=== PATIENT | male | born 1965 | race Caucasian/White ===

== ENCOUNTER 2017-02-13 05:56 | Emergency (ER) | payer BC ==
[2017-02-13] MEDS ORDERED: GI Cocktail Oral Solution 30 ML PO ONE (06:01)
--- NOTE | 2017-02-13 06:08 | EDM.PDOC ---
<Karel Dean - Last Filed: 02/13/17 07:13> ED HPI GENERAL MEDICAL PROBLEM - General Stated Complaint: SEVERE ABD PAIN Time Seen by Provider: 02/13/17 06:05 Source of Information: Reports: Patient History Limitations: Reports: No Limitations - History of Present Illness INITIAL COMMENTS - FREE TEXT/NARRATIVE: c/o epiG pain since 5am without V/D, gives h/o H-H past 25 years also had cardiac arrest and had pacer-defib, also brother dies from pancreatitis. ate dinner of meat loaf & beans. Right Abdomen Pain Score (Numeric/FACES): 8 - Related Data Allergies Allergy/AdvReac Type Severity Reaction Status Date / Time Sulfa (Sulfonamide Allergy Rash Verified 02/13/17 06:35 Antibiotics) Home Meds: Home Meds ALPRAZolam [Xanax] 0.5 mg PO TID PRN 09/08/15 [History] Aspirin [Adult Low Dose Aspirin EC] 81 mg PO DAILY 09/08/15 [History] Lisinopril 10 mg PO DAILY 09/08/15 [History] atorvaSTATin [Lipitor] 5 mg PO ASDIRECTED 09/08/15 [History] Metoprolol Succinate [Toprol XL] 50 mg PO DAILY 10/15/15 [History] predniSONE [Prednisone] 2 mg PO ASDIRECTED 10/15/15 [History] Atovaquone 750 mg PO DAILY 01/03/16 [History] Mycophenolate Mofetil [Cellcept] 1,000 mg PO BID 01/03/16 [History] Calcium Carbonate [Calcium] 600 mg PO 07/05/16 [History] Cholecalciferol (Vitamin D3) [Vitamin D3] 400 unit PO BID 07/05/16 [History] DULoxetine [Cymbalta] 60 mg PO DAILY 07/05/16 [History] Pantoprazole [Protonix] 40 mg PO DAILY 07/05/16 [History] Past Medical History Cardiovascular History: Reports: Arrhythmia, Automatic Implantable Cardioverter Defibrillators, CAD, Cardiomyopathy, High Cholesterol, Hypertension, Pacemaker, Prior Cardiac Arrest Other Cardiovascular History: cardiac arrest 1 month ago due to dilated cardiomyopathy, had an AICD implanted Respiratory History: Reports: None Gastrointestinal History: Reports: GERD Genitourinary History: Reports: None Psychiatric History: Reports: Anxiety Hematologic History: Reports: None Immunologic History: Reports: None Oncologic (Cancer) History: Reports: None - Past Surgical History Cardiovascular Surgical History: Reports: AICD Male Surgical History: Reports: None Oncologic Surgical History: Reports: None Social & Family History - Tobacco Use Smoking Status *Q: Never Smoker Second Hand Smoke Exposure: No - Recreational Drug Use Recreational Drug Use: No ED ROS GENERAL - Review of Systems Review Of Systems: ROS reveals no pertinent complaints other than HPI. ED EXAM, GENERAL - Physical Exam Exam: See Below Exam Limited By: No Limitations General Appearance: Alert, WD/WN, Anxious, Mild Distress Ears: Hearing Grossly Normal Throat/Mouth: Normal Voice, No Airway Compromise Head: Atraumatic Neck: Non-Tender, Full Range of Motion Respiratory/Chest: No Respiratory Distress Cardiovascular: Regular Rate, Rhythm GI/Abdominal: Tender, Other (epiG). No: Guarding, Rigid, Rebound Neurological: Alert, Oriented, Normal Cognition, Normal Gait, No Motor/Sensory Deficits Psychiatric: Anxious Skin Exam: Warm, Dry, Normal Color Lymphatic: No Adenopathy Course - Vital Signs Last Recorded V/S: Last Vital Signs Temp 36.4 C 02/13/17 05:56 Pulse 80 02/13/17 08:33 Resp 16 02/13/17 08:33 BP 125/97 H 02/13/17 08:33 Pulse Ox 98 02/13/17 08:33 - Orders/Labs/Meds Orders: Active Orders 24 hr Category Date Time Status EKG 12 Lead [EKG Documentation Completion] [RC] STAT Care 02/13/17 06:02 Active Abdomen Ltd [US] Urgent Exams 02/13/17 08:05 Taken Labs: Laboratory Tests 02/13/17 02/13/17 Range/Units 06:12 06:12 WBC 9.1 (5.0-10.0) 10^3/uL RBC 5.14 (4.6-6.2) 10^6/uL Hgb 16.4 (14.0-18.0) g/dL Hct 48.6 (40.0-54.0) % MCV 94.6 (80-100) fL MCH 31.9 (27.0-34.0) pg MCHC 33.7 (33.0-35.0) g/dL Plt Count 217 (150-450) 10^3/uL Neut % (Auto) 56.6 (42.2-75.2) % Lymph % (Auto) 26.6 (20.5-50.1) % [place] % (Auto) 14.1 H (2-8) % Eos % (Auto) 1.9 (1.0-3.0) % Baso % (Auto) 0.8 (0.0-1.0) % Sodium 136 (135-145) mmol/L Potassium 4.2 (3.6-5.0) mmol/L Chloride 96 L (101-111) mmol/L Carbon Dioxide 25.0 (21.0-31.0) mmol/L Anion Gap 19.2 BUN 13 (7-18) mg/dL Creatinine 0.9 (0.6-1.3) mg/dL Est Cr Clr Drug Dosing 101.64 mL/min Estimated GFR (MDRD) > 60 BUN/Creatinine Ratio 14.44 Glucose 279 H (74-105) mg/dL Calcium 9.8 (8.4-10.2) mg/dl Total Bilirubin 0.8 (0.2-1.0) mg/dL AST 38 (10-42) IU/L ALT 68 H (10-60) IU/L Alkaline Phosphatase 62 (42-121) IU/L Troponin I < 0.02 (0.00-0.02) ng/ml Total Protein 7.4 (6.7-8.2) g/dl Albumin 4.7 (3.2-5.5) g/dl Globulin 2.7 Albumin/Globulin Ratio 1.74 Amylase 48 (28-100) U/L Lipase 36 (22-51) U/L Meds: Medications Discontinued Medications Generic Name Dose Route Start Last Admin Trade Name Freq PRN Reason Stop Dose Admin Al Hydroxide/Mg Hydroxide 30 ml 02/13/17 06:01 02/13/17 06:21 Gi Cocktail PO 02/13/17 06:02 30 ml ONETIME ONE Administration Iopamidol 100 ml 02/13/17 06:55 Isovue-300 (61%) IVPUSH 02/13/17 06:56 ONETIME ONE Morphine Sulfate 2 mg 02/13/17 06:35 02/13/17 06:44 Morphine IVPUSH 02/13/17 06:36 2 mg ONETIME ONE Administration Ondansetron HCl 4 mg 02/13/17 06:35 02/13/17 06:44 Zofran IV 02/13/17 06:36 4 mg ONETIME ONE Administration - Re-Assessments/Exams Free Text/Narrative Re-Assessment/Exam: 02/13/17 06:36 s/p GI cocktail = getting better but not 100%. pt very anxious. 02/13/17 06:56 s/p IV morph = much better but really concern re; pancreas due to brother from pancreatitis. Departure - Departure Disposition: DC/Tfer to [facility] 02 Clinical Impression: Gall bladder disease Forms: Interfacility Transfer EMTALA Care Plan Goals: Discussed the examination, history, lab, EKG, CT and ultrasound results initially with Dr. Decker (Local Surgeon). Dr. Decker advised to have the patient transferred to [facility] in [place] for an ERCP due to dilation of the common bile duct. Information was discussed with Dr. Lomeli (Hospitalist with [facility] in [place]). Dr. Lomeli accepted the patient for continued evaluation and management. The patient will be transported by [facility]. - My Orders Last 24 Hours: My Active Orders 02/13/17 08:05 Abdomen Ltd [US] Urgent - Assessment/Plan Last 24 Hours: My Active Orders 02/13/17 08:05 Abdomen Ltd [US] Urgent <Timbo Freed - Last Filed: 02/13/17 10:09> Course - Re-Assessments/Exams Free Text/Narrative Re-Assessment/Exam: 02/13/17 10:[address] Decker (Surgeon). Dr. Decker advised to have the patient transferred to [facility] due to a dilated common bile duct (3.8 mm) and cardiac history. Departure - Departure Time of Disposition: 10:04 Reason for Transfer *Q: Other Condition: Fair
[2017-02-13] MEDS ORDERED: Ondansetron 4 MG/2 ML SDV IV ONE (06:35)
[2017-02-13] MEDS ORDERED: Morphine 2 MG/ML Syringe IVPUSH ONE (06:35)
[2017-02-13 06:40] LABS: CHLORIDE,CL 96 mmol/L (101-111); SODIUM,NA 136 mmol/L (135-145)
[2017-02-13] MEDS ORDERED: Iopamidol 612 MG/ML 100 ML Bottle IVPUSH ONE (06:55)
[2017-02-13 08:34] VITALS: BP 125/97
--- NOTE | 2017-04-05 10:37 | EKG ---
02/13/2017- YARIEL HERNANDEZ - EKG done on a 52-year-old male showing Sinus rhythm, discernible P waves noted on some leads, heart rate of 64 beats per minute, normal axis. [facility] /[id number] MTDD
== END 2017-02-13 10:30 ==
LOC: DL.ED 05:56
DX: K82.9 Disease of gallbladder, unspecified (principal); I25.10 Atherosclerotic heart disease of native coronary artery without angina pectoris; E78.00 Pure hypercholesterolemia, unspecified; I10 Essential (primary) hypertension; K21.9 Gastro-esophageal reflux disease without esophagitis; F41.9 Anxiety disorder, unspecified; Z88.2 Allergy status to sulfonamides; Z79.899 Other long term (current) drug therapy
CPT/HCPCS: 36415; 74177; 76705; 80053; 82150; 83690; 84484; 85025; 93005; 96374; 96375; 99285; A9270; J2270; J2405; Q9967

== ENCOUNTER 2017-08-06 11:05 | Emergency (ER) | payer BC ==
[2017-08-06 11:15] VITALS: BP 147/99
--- NOTE | 2017-08-06 11:28 | EDM.PDOC ---
ED HPI GENERAL MEDICAL PROBLEM - General Chief Complaint: Fever Stated Complaint: ABDOMINAL PAIN Time Seen by Provider: 08/06/17 11:27 Source of Information: Reports: Patient, Old Records, RN, RN Notes Reviewed History Limitations: Reports: No Limitations - History of Present Illness INITIAL COMMENTS - FREE TEXT/NARRATIVE: Pt c/o generalized abdominal pain x4 to 5 days, getting worse. Initially associated with fever, nausea, vomiting, and diarrhea. Pt reports the N/V and fevers have subsided, but the pain has gotten worse. Pt had his gallbladder removed last year. Duration: Week(s): (1), Constant, Getting Worse Location: Reports: Abdomen Quality: Reports: Ache Severity: Severe Improves with: Reports: None Worsens with: Reports: None Associated Symptoms: Reports: No Other Symptoms Treatments RAG SHREDDER: Reports: Acetaminophen Abdomen Pain Score (Numeric/FACES): 8 - Related Data Allergies Allergy/AdvReac Type Severity Reaction Status Date / Time midazolam [From Versed] Allergy Other Verified 08/06/17 11:16 Sulfa (Sulfonamide Allergy Rash Verified 02/13/17 06:35 Antibiotics) Home Meds: Home Meds ALPRAZolam [Xanax] 0.5 mg PO TID PRN 09/08/15 [History] Aspirin [Adult Low Dose Aspirin EC] 81 mg PO DAILY 09/08/15 [History] Lisinopril 10 mg PO DAILY 09/08/15 [History] atorvaSTATin [Lipitor] 5 mg PO ASDIRECTED 09/08/15 [History] predniSONE [Prednisone] 2 mg PO ASDIRECTED 10/15/15 [History] Atovaquone 750 mg PO DAILY 01/03/16 [History] Mycophenolate Mofetil [Cellcept] 1,500 mg PO BID 01/03/16 [History] Calcium Carbonate [Calcium] 600 mg PO 07/05/16 [History] Cholecalciferol (Vitamin D3) [Vitamin D3] 400 unit PO BID 07/05/16 [History] DULoxetine [Cymbalta] 60 mg PO DAILY 07/05/16 [History] Sotalol [Betapace] 08/06/17 [History] Past Medical History Cardiovascular History: Reports: Arrhythmia, Automatic Implantable Cardioverter Defibrillators, CAD, Cardiomyopathy, High Cholesterol, Hypertension, Pacemaker, Prior Cardiac Arrest Other Cardiovascular History: cardiac arrest 1 month ago due to dilated cardiomyopathy, had an AICD implanted Respiratory History: Reports: None Gastrointestinal History: Reports: Cholelithiasis, GERD Genitourinary History: Reports: None Psychiatric History: Reports: Anxiety Hematologic History: Reports: None Immunologic History: Reports: None Oncologic (Cancer) History: Reports: None - Past Surgical History Cardiovascular Surgical History: Reports: AICD GI Surgical History: Reports: Cholecystectomy Male Surgical History: Reports: None Oncologic Surgical History: Reports: None Social & Family History - Family History Cardiac: Reports: CAD (father) GI: Reports: Pancreatitis (brother) Oncologic: Reports: Pancreatic (brother) - Tobacco Use Smoking Status *Q: Never Smoker Second Hand Smoke Exposure: No - Caffeine Use Caffeine Use: Reports: Coffee, Soda, Tea - Recreational Drug Use Recreational Drug Use: No - Living Situation & Occupation Living situation: Reports: , with Family Occupation: Employed ED ROS GENERAL - Review of Systems Review Of Systems: ROS reveals no pertinent complaints other than HPI. ED EXAM, GENERAL - Physical Exam Exam: See Below Exam Limited By: No Limitations General Appearance: Alert, WD/WN, No Apparent Distress Eye Exam: Bilateral Eye: EOMI, Normal Inspection, PERRL Ears: Hearing Grossly Normal Nose: Normal Inspection Throat/Mouth: Normal Inspection, Normal Lips, Normal Teeth, Normal Gums, Normal Oropharynx, Normal Voice, No Airway Compromise Head: Atraumatic, Normocephalic Neck: Normal Inspection, Supple, Non-Tender, Full Range of Motion Respiratory/Chest: No Respiratory Distress, Lungs Clear, Normal Breath Sounds, No Accessory Muscle Use, Chest Non-Tender Cardiovascular: Normal Peripheral Pulses, Regular Rate, Rhythm, No Edema, No Gallop, No JVD, No Murmur, No Rub GI/Abdominal: Normal Bowel Sounds, Soft, No Distention, Tender (epigastric, RUQ tenderness). No: Guarding, Rigid, Rebound (Male) Exam: Deferred Rectal (Males) Exam: Deferred Back Exam: Normal Inspection. No: CVA Tenderness (L), CVA Tenderness (R) Extremities: Normal Inspection Neurological: Alert, Oriented, CN II-XII Intact, Normal Cognition, Normal Gait, No Motor/Sensory Deficits Psychiatric: Normal Affect, Normal Mood Skin Exam: Warm, Dry, Intact, Jaundice (slight) EKG INTERPRETATION EKG Date: 08/06/17 Time: 11:43 Rhythm: Other (Sinus Tach) Rate (Beats/Min): 103 [place]: Normal P-Wave: Present QRS: Other (nonspecific IVCD, LVH, paired PVCs) ST-T: Normal QT: Normal Comparison: NA - No Prior EKG Course - Vital Signs Last Recorded V/S: Last Vital Signs Temp 35.1 C L 08/06/17 11:08 Pulse 110 H 08/06/17 11:08 Resp 16 08/06/17 11:08 BP 147/99 H 08/06/17 11:08 Pulse Ox 99 08/06/17 11:08 - Orders/Labs/Meds Orders: Active Orders 24 hr Category Date Time Status EKG 12 Lead [EKG Documentation Completion] [] STAT Care 08/06/17 11:36 Active Peripheral IV Care [] . DIRECTED Care 08/06/17 11:34 Active CULTURE BLOOD [BC] Stat Lab 08/06/17 11:41 Received CULTURE BLOOD [BC] Stat Lab 08/06/17 11:59 Received Sodium Chloride 0.9% [Saline Flush] Med 08/06/17 11:33 Active 10 ml FLUSH ASDIRECTED PRN Blood Culture x2 Reflex Set [OM.PC] Stat Oth 08/06/17 11:34 Ordered Peripheral IV Insertion Adult [OM.PC] Stat Oth 08/06/17 11:34 Ordered Medication Orders Sodium Chloride (Saline Flush) 10 ml FLUSH ASDIRECTED PRN PRN Reason: Keep Vein Open Last Admin: 08/06/17 11:48 Dose: 10 ml Labs: Laboratory Tests 08/06/17 08/06/17 08/06/17 Range/Units 11:41 11:41 11:41 WBC 15.5 H (5.0-10.0) 10^3/uL RBC 5.16 (4.6-6.2) 10^6/uL Hgb 15.7 (14.0-18.0) g/dL Hct 44.9 (40.0-54.0) % MCV 87.0 D (80-100) fL MCH 30.4 (27.0-34.0) pg MCHC 35.0 (33.0-35.0) g/dL Plt Count 150 (150-450) 10^3/uL Neut % (Auto) 82.1 H (42.2-75.2) % Lymph % (Auto) 4.2 L (20.5-50.1) % [place] % (Auto) 12.5 H (2-8) % Eos % (Auto) 1.0 (1.0-3.0) % Baso % (Auto) 0.2 (0.0-1.0) % Sodium 128 L (135-145) mmol/L Potassium 3.7 (3.6-5.0) mmol/L Chloride 91 L (101-111) mmol/L Carbon Dioxide 22.0 (21.0-31.0) mmol/L Anion Gap 18.7 BUN 10 (7-18) mg/dL Creatinine 0.8 (0.6-1.3) mg/dL Est Cr Clr Drug Dosing 110.47 mL/min Estimated GFR (MDRD) > 60 BUN/Creatinine Ratio 12.50 Glucose 145 H (74-105) mg/dL Lactic Acid 1.4 (0.5-2.2) mmol/L Calcium 8.8 (8.4-10.2) mg/dl Magnesium 1.8 (1.8-2.5) mg/dL Total Bilirubin 3.9 H (0.2-1.0) mg/dL AST 104 H (10-42) IU/L ALT 192 H (10-60) IU/L Alkaline Phosphatase 103 (42-121) IU/L Troponin I < 0.02 (0.00-0.02) ng/ml Total Protein 6.8 (6.7-8.2) g/dl Albumin 3.8 (3.2-5.5) g/dl Globulin 3.0 Albumin/Globulin Ratio 1.27 Amylase 59 (28-100) U/L Lipase 73 H (22-51) U/L Urine Color (YELLOW) Urine Appearance (CLEAR) Urine pH (5.0-9.0) Ur Specific [place] (1.005-1.030) Urine Protein (NEGATIVE) Urine Glucose (UA) (NEGATIVE) Urine Ketones (NEGATIVE) Urine Occult Blood (NEGATIVE) Urine Nitrite (NEGATIVE) Urine Bilirubin (NEGATIVE) Urine Urobilinogen (0.2-1.0) mg/dL Ur Leukocyte Esterase (NEGATIVE) Urine RBC /HPF Urine WBC (0-5/HPF) /HPF Ur Epithelial Cells /HPF Amorphous Sediment (0/HPF) /HPF Urine Bacteria (0-FEW/HPF) /HPF Urine Mucus /LPF 08/06/17 Range/Units 13:10 WBC (5.0-10.0) 10^3/uL RBC (4.6-6.2) 10^6/uL Hgb (14.0-18.0) g/dL Hct (40.0-54.0) % MCV (80-100) fL MCH (27.0-34.0) pg MCHC (33.0-35.0) g/dL Plt Count (150-450) 10^3/uL Neut % (Auto) (42.2-75.2) % Lymph % (Auto) (20.5-50.1) % [place] % (Auto) (2-8) % Eos % (Auto) (1.0-3.0) % Baso % (Auto) (0.0-1.0) % Sodium (135-145) mmol/L Potassium (3.6-5.0) mmol/L Chloride (101-111) mmol/L Carbon Dioxide (21.0-31.0) mmol/L Anion Gap BUN (7-18) mg/dL Creatinine (0.6-1.3) mg/dL Est Cr Clr Drug Dosing mL/min Estimated GFR (MDRD) BUN/Creatinine Ratio Glucose (74-105) mg/dL Lactic Acid (0.5-2.2) mmol/L Calcium (8.4-10.2) mg/dl Magnesium (1.8-2.5) mg/dL Total Bilirubin (0.2-1.0) mg/dL AST (10-42) IU/L ALT (10-60) IU/L Alkaline Phosphatase (42-121) IU/L Troponin I (0.00-0.02) ng/ml Total Protein (6.7-8.2) g/dl Albumin (3.2-5.5) g/dl Globulin Albumin/Globulin Ratio Amylase (28-100) U/L Lipase (22-51) U/L Urine Color Yellow (YELLOW) Urine Appearance Slightly cloudy (CLEAR) Urine pH 5.5 (5.0-9.0) Ur Specific [place] 1.010 (1.005-1.030) Urine Protein 30 H (NEGATIVE) Urine Glucose (UA) Negative (NEGATIVE) Urine Ketones 40 H (NEGATIVE) Urine Occult Blood Negative (NEGATIVE) Urine Nitrite Negative (NEGATIVE) Urine Bilirubin Small H (NEGATIVE) Urine Urobilinogen 0.2 (0.2-1.0) mg/dL Ur Leukocyte Esterase Negative (NEGATIVE) Urine RBC 0-5 /HPF Urine WBC 0-5 (0-5/HPF) /HPF Ur Epithelial Cells Rare /HPF Amorphous Sediment Few (0/HPF) /HPF Urine Bacteria Few (0-FEW/HPF) /HPF Urine Mucus Rare /LPF Meds: Medications Generic Name Dose Route Start Last Admin Trade Name Freq PRN Reason Stop Dose Admin Sodium Chloride 10 ml 08/06/17 11:33 08/06/17 11:48 Saline Flush FLUSH 10 ml ASDIRECTED PRN Administration Keep Vein Open Discontinued Medications Generic Name Dose Route Start Last Admin Trade Name Freq PRN Reason Stop Dose Admin Sodium Chloride 1,000 mls @ 999 mls/hr 08/06/17 11:36 08/06/17 11:47 Normal Saline IV 08/06/17 12:36 999 mls/hr .BOLUS ONE Administration Iopamidol 100 ml 08/06/17 12:45 08/06/17 13:20 Isovue-300 (61%) IVPUSH 08/06/17 12:46 100 ml ONETIME ONE Administration Ondansetron HCl 4 mg 08/06/17 11:36 08/06/17 11:48 Zofran IV 08/06/17 11:37 4 mg ONETIME ONE Administration - Radiology Interpretation Free Text/Narrative:: CT ABD/Pelvis: abnormal, 12cm-15cm cystic lesions x2; see Rad. report. CT Results Date: 08/06/17 Departure - Departure Time of Disposition: 14:20 Disposition: DC/Tfer to Acute Hospital 02 Condition: Serious, Undetermined Clinical Impression: Pancreatic cyst, Abdominal pain, Elevated LFTs - Discharge Information Forms: ED Department Discharge, Interfacility Transfer EMTALA - My Orders Last 24 Hours: My Active Orders 08/06/17 11:33 Sodium Chloride 0.9% [Saline Flush] 10 ml FLUSH ASDIRECTED PRN 08/06/17 11:34 Peripheral IV Care [RC] . DIRECTED Blood Culture x2 Reflex Set [OM.PC] Stat Peripheral IV Insertion Adult [OM.PC] Stat 08/06/17 11:36 EKG 12 Lead [EKG Documentation Completion] [RC] STAT 08/06/17 11:41 CULTURE BLOOD [BC] Stat 08/06/17 11:59 CULTURE BLOOD [BC] Stat - Assessment/Plan Last 24 Hours: My Active Orders 08/06/17 11:33 Sodium Chloride 0.9% [Saline Flush] 10 ml FLUSH ASDIRECTED PRN 08/06/17 11:34 Peripheral IV Care [RC] . DIRECTED Blood Culture x2 Reflex Set [OM.PC] Stat Peripheral IV Insertion Adult [OM.PC] Stat 08/06/17 11:36 EKG 12 Lead [EKG Documentation Completion] [RC] STAT 08/06/17 11:41 CULTURE BLOOD [BC] Stat 08/06/17 11:59 CULTURE BLOOD [BC] Stat
[2017-08-06] MEDS ORDERED: Sodium Chloride 0.9% 10 ML Syringe FLUSH PRN (11:33)
[2017-08-06] MEDS ORDERED: Ondansetron 4 MG/2 ML SDV IV ONE (11:36)
[2017-08-06] MEDS ORDERED: Sodium Chloride 0.9% 1,000 ML IV ONE (11:36)
[2017-08-06 12:10] LABS: CHLORIDE,CL 91 mmol/L (101-111); SODIUM,NA 128 mmol/L (135-145)
[2017-08-06] MEDS ORDERED: Iopamidol 612 MG/ML 100 ML Bottle IVPUSH ONE (12:45)
--- NOTE | 2017-08-06 14:26 | CT ---
CLINICAL HISTORY: 52-year-old 210 pound hypertensive and diabetic male with a history cholecystectomy , abnormally elevated LFTs (total bilirubin 3.9), and increased WBC (15,500) complaining of abdomina l pain reported to have fatty liver January 2017. SCAN TECHNIQUE: Volume acquisition of data from the abdomen and pelvis obtained without oral contrast but during/after the intravenous administration 100 cc nonionic Isovue contrast (3 cc/sec via inject or) while the patient was lying supine on the Siemens multislice CT scanner [place], [place]. All data archived in the PACS system for storage, reformatting and study. INTERPRETATION: Abnormal. 1. *Round adjacent 12-15 mm hypoechoic cystic (x2) lesions, anteriorly, head of the pancreas with armando e surrounding "dirty" peritoneal fat suggesting inflammation new since previous exam 13 February 2017. 2.. Small diverticulum second portion of the duodenum. Body and tail of the pancreas normal without d iscrete mass or major pancreatic ductal dilatation. 3. Cholecystectomy. Fatty liver. Normal stomach, spleen and adrenal glands. 4. Normal reniform size, axis and configuration. No sign of renal cortical mass lesion, nephrolithias is or obstructive uropathy. 5. Cardiac pacemaker. Calcifications normal caliber aortoiliac vessels. Chronic disc disease and ante rolisthesis L5 vertebral body. 6. No new pelvic or abdominal mass lesion, signs of retroperitoneal lymphadenopathy, mechanical bowel obstruction, ascites or free intraperitoneal air. Normal appendix RLQ. CONCLUSION: Acute pancreatitis (new evidence cholecystectomy since [address] exam). Clinical?
--- NOTE | 2017-08-08 18:59 | EKG ---
08/06/2017 - YARIEL HERNANDEZ I reviewed the EKG and agree with the machine's reading. [facility] /[id number]
== END 2017-08-06 15:05 ==
LOC: DL.ED 11:05
DX: K86.2 Cyst of pancreas (principal); R94.5 Abnormal results of liver function studies; K21.9 Gastro-esophageal reflux disease without esophagitis; Z88.2 Allergy status to sulfonamides; Z88.8 Allergy status to other drugs, medicaments and biological substances; Z79.82 Long term (current) use of aspirin; Z79.899 Other long term (current) drug therapy
CPT/HCPCS: 36415; 74177; 80053; 81001; 82150; 83605; 83690; 83735; 84484; 85025; 87040; 93005; 96361; 96374; 99285; J2405; J7030; J7050; Q9967

== ENCOUNTER 2019-05-21 08:56 | Emergency (ER) | payer BC ==
[2019-05-21 09:06] VITALS: BP 123/71; PULSE 99
[2019-05-21 10:00] LABS: ANION GAP 12.7; CHLORIDE,CL 90 mmol/L (101-111); SODIUM,NA 124 mmol/L (135-145)
--- NOTE | 2019-05-21 10:00 | EDM.PDOC ---
ED HPI GENERAL MEDICAL PROBLEM - General Chief Complaint: General Stated Complaint: LEAKING FLUID FROM PROCEDURE LAST WEEK Time Seen by Provider: 05/21/19 09:35 Source of Information: Reports: Patient History Limitations: Reports: No Limitations - History of Present Illness INITIAL COMMENTS - FREE TEXT/NARRATIVE: This 54 yo male patient reports to the ED with drainage from his right abdomen. The patient reports he had 3.5 liters of fluid drained from his abdomen last week. The patient reports he started to have drainage last night and the wound has continued to drain throughout the morning. The patient has a history of sarcoidosis and has been being treated through the [facility]. The patient reports he is attempting to get into Dr. Alejandra (GI/Liver Specialist with [facility]) for continued evaluation and further treatment. The patient denies any abdominal tenderness or shortness of breath at this time. Onset: Today Duration: Constant Location: Reports: Abdomen (right side abdominal drainage) Quality: Reports: Other Severity: Mild Improves with: Reports: None Worsens with: Reports: None Context: Reports: Other Associated Symptoms: Reports: No Other Symptoms - Related Data Allergies Allergy/AdvReac Type Severity Reaction Status Date / Time midazolam [From Versed] Allergy Other Verified 05/21/19 09:06 Sulfa (Sulfonamide Allergy Rash Verified 05/21/19 09:06 Antibiotics) Home Meds: Home Meds ALPRAZolam [Xanax] 0.5 mg PO TID PRN 09/08/15 [History] Lisinopril 10 mg PO DAILY 09/08/15 [History] atorvaSTATin [Lipitor] 5 mg PO ASDIRECTED 09/08/15 [History] predniSONE [Prednisone] 20 mg PO ASDIRECTED 10/15/15 [History] Mycophenolate Mofetil [Cellcept] 1,500 mg PO BID 01/03/16 [History] DULoxetine [Cymbalta] 60 mg PO DAILY 07/05/16 [History] Past Medical History HEENT History: Reports: Impaired Vision Cardiovascular History: Reports: Arrhythmia, Automatic Implantable Cardioverter Defibrillators, CAD, Cardiomyopathy, High Cholesterol, Hypertension, Pacemaker, Prior Cardiac Arrest Other Cardiovascular History: cardiac arrest 1 month ago due to dilated cardiomyopathy, had an AICD implanted Respiratory History: Reports: None Other Respiratory History: Sarcoidosis Gastrointestinal History: Reports: Cholelithiasis, GERD Genitourinary History: Reports: None Neurological History: Reports: None Psychiatric History: Reports: Anxiety Endocrine/Metabolic History: Reports: Diabetes, Type II Other Endocrine/Metabolic History: Due to steriod use Hematologic History: Reports: Anemia Immunologic History: Reports: None Oncologic (Cancer) History: Reports: None Dermatologic History: Reports: None - Infectious Disease History Infectious Disease History: Reports: Chicken Pox - Past Surgical History Cardiovascular Surgical History: Reports: AICD GI Surgical History: Reports: Cholecystectomy, EGD Male Surgical History: Reports: None Musculoskeletal Surgical History: Reports: Other (See Below) Other Musculoskeletal Surgeries/Procedures:: Wrist surgery Oncologic Surgical History: Reports: None Social & Family History - Family History Family Medical History: Noncontributory Cardiac: Reports: CAD GI: Reports: Pancreatitis Oncologic: Reports: Pancreatic - Tobacco Use Smoking Status *Q: Never Smoker Second Hand Smoke Exposure: No - Caffeine Use Caffeine Use: Reports: Coffee, Soda - Recreational Drug Use Recreational Drug Use: No - Living Situation & Occupation Living situation: Reports: , with Family Occupation: Employed ED ROS GENERAL - Review of Systems Review Of Systems: Comprehensive ROS is negative, except as noted in HPI. ED EXAM, GENERAL - Physical Exam Exam: See Below Exam Limited By: No Limitations General Appearance: Alert, WD/WN, No Apparent Distress Eye Exam: Bilateral Eye: EOMI, Normal Inspection, PERRL Ears: Normal External Exam, Normal Canal, Hearing Grossly Normal, Normal TMs Nose: Normal Inspection, Normal Mucosa, No Blood Throat/Mouth: Normal Inspection, Normal Lips, Normal Teeth, Normal Gums, Normal Oropharynx, Normal Voice, No Airway Compromise Head: Atraumatic, Normocephalic Neck: Normal Inspection, Supple, Non-Tender, Full Range of Motion Respiratory/Chest: No Respiratory Distress, Lungs Clear, Normal Breath Sounds, No Accessory Muscle Use, Chest Non-Tender Cardiovascular: Normal Peripheral Pulses, Regular Rate, Rhythm, No Edema, No Gallop, No JVD, No Murmur, No Rub GI/Abdominal: Normal Bowel Sounds, Soft, Non-Tender, No Organomegaly, No Abnormal Bruit, No Mass, Pelvis Stable, Distended (mild), Other (Drainage from pericentesis site) (Male) Exam: Deferred Rectal (Males) Exam: Deferred Back Exam: Normal Inspection, Full Range of Motion, NT Extremities: Normal Inspection, Normal Range of Motion, Non-Tender, Normal Capillary Refill, No Pedal Edema Neurological: Alert, Oriented, CN II-XII Intact, Normal Cognition, Normal Gait, Normal Reflexes, No Motor/Sensory Deficits Psychiatric: Normal Affect, Normal Mood Skin Exam: Warm, Dry, Intact, Normal Color, No Rash Lymphatic: No Adenopathy ED GENERAL MEDICAL PROCEDURES - Laceration/Wound Repair Right Lateral Abdomen Lac/wound length in cm: 0.5 Appearance: Subcutaneous Distal NVT: Neuro & Vascular Intact Skin Prep: Isopropyl Alcohol (Alcohol) Closed with: Sutures Suture Size: 4-0 # of Sutures: 1 Suture Type: Prolene, Interrupted, Simple Drain Placement: No Sterile Dressing Applied: Nurse Tetanus Status Addressed: Yes Complications: No Course - Vital Signs Last Recorded V/S: Last Vital Signs Temp 35.9 C 05/21/19 09:02 Pulse 99 05/21/19 09:02 Resp 16 05/21/19 09:02 BP 123/71 05/21/19 09:02 Pulse Ox 98 05/21/19 09:02 - Orders/Labs/Meds Orders: Active Orders 24 hr Category Date Time Status CULTURE BLOOD [BC] Stat Lab 05/21/19 09:30 Received Labs: Laboratory Tests 05/21/19 05/21/19 05/21/19 Range/Units 09:30 09:30 09:30 WBC 13.7 H (5.0-10.0) 10^3/uL RBC 3.24 L (4.6-6.2) 10^6/uL Hgb 8.6 L (14.0-18.0) g/dL Hct 26.3 L (40.0-54.0) % MCV 81.2 (80-100) fL MCH 26.5 L (27.0-34.0) pg MCHC 32.7 L (33.0-35.0) g/dL Plt Count 231 (150-450) 10^3/uL Neut % (Auto) 83.8 H (42.2-75.2) % Lymph % (Auto) 6.6 L (20.5-50.1) % Wirt % (Auto) 8.4 H (2-8) % Eos % (Auto) 1.0 (1.0-3.0) % Baso % (Auto) 0.2 (0.0-1.0) % Sodium 124 L (135-145) mmol/L Potassium 3.7 (3.6-5.0) mmol/L Chloride 90 L (101-111) mmol/L Carbon Dioxide 25.0 (21.0-31.0) mmol/L Anion Gap 12.7 BUN 8 (7-18) mg/dL Creatinine 0.6 (0.6-1.3) mg/dL Est Cr Clr Drug Dosing 148.70 mL/min Estimated GFR (MDRD) > 60 BUN/Creatinine Ratio 13.33 Glucose 113 H (74-105) mg/dL Calcium 8.5 (8.4-10.2) mg/dl Total Bilirubin 2.0 H (0.2-1.0) mg/dL AST 113 H (10-42) IU/L ALT 63 H (10-60) IU/L Alkaline Phosphatase 186 H (42-121) IU/L Ammonia 88 H (11-35) umol/L Total Protein 5.5 L (6.7-8.2) g/dl Albumin 2.7 L (3.2-5.5) g/dl Globulin 2.8 Albumin/Globulin Ratio 0.96 Lipase 94 H (22-51) U/L - Re-Assessments/Exams Free Text/Narrative Re-Assessment/Exam: 05/21/19 10:[address] Kuhn who came to the ED to evaluate the patient. Dr. Kuhn does not believe the patient needs to have more fluid removed at this time. Departure - Departure Time of Disposition: 10:20 Disposition: Home, Self-Care 01 Condition: Fair Clinical Impression: Drainage from wound Ascites Qualifiers: Ascites type: other type Qualified Code(s): R18.8 - Other ascites - Discharge Information *PRESCRIPTION DRUG MONITORING PROGRAM REVIEWED*: Not Applicable *COPY OF PRESCRIPTION DRUG MONITORING REPORT IN PATIENT DUSTIN: Not Applicable Referrals: Willis Davies MD [Primary Care Provider] - Forms: ED Department Discharge Care Plan Goals: The patient was advised of the examination and lab results during the visit. During the visit, a suture was placed to close the area of drainage. The patient was encouraged to follow-up with his primary care facility to have the suture removed in 10-14 days. The patient was encouraged to continue to attempt to get an appointment with Dr. Alejandra. If the patient has any additional symptoms or concerns, the patient should either return to the emergency department or visit his primary care facility. - My Orders Last 24 Hours: My Active Orders 05/21/19 09:30 CULTURE BLOOD [BC] Stat - Assessment/Plan Last 24 Hours: My Active Orders 05/21/19 09:30 CULTURE BLOOD [] Stat
== END 2019-05-21 10:31 | disposition home or self-care (01) ==
LOC: DL.ED 08:56
DX: T81.89XA Other complications of procedures, not elsewhere classified, initial encounter (principal); R18.8 Other ascites; E11.9 Type 2 diabetes mellitus without complications; E78.00 Pure hypercholesterolemia, unspecified; I10 Essential (primary) hypertension; F41.9 Anxiety disorder, unspecified; Z79.899 Other long term (current) drug therapy; Z88.8 Allergy status to other drugs, medicaments and biological substances; Z88.2 Allergy status to sulfonamides; Z95.5 Presence of coronary angioplasty implant and graft; Y83.8 Other surgical procedures as the cause of abnormal reaction of the patient, or of later complication, without mention of misadventure at the time of the procedure
CPT/HCPCS: 12001; 36415; 80053; 82140; 83690; 85025; 87040; 99284-25

== ENCOUNTER 2019-08-16 17:09 | Emergency (ER) | payer BC ==
[2019-08-16 17:20] VITALS: BP 97/58; PULSE 89
[2019-08-16] MEDS ORDERED: Bacitracin Oint 1 GM U/D Packet TOP ONE (17:55)
[2019-08-16] MEDS ORDERED: Lidocaine 1% 30 ML SDV INJECT ONE (17:55)
[2019-08-16] MEDS ORDERED: oxyCODONE 5 MG Tab PO ONE (18:20)
--- NOTE | 2019-08-16 18:31 | EDM.PDOC ---
Scribed by Tierney Grace 08/16/19 1830 for Fito Gonzales NP ED HPI GENERAL MEDICAL PROBLEM - General Chief Complaint: Wound Recheck Stated Complaint: FALL/LACERATION ON HEAD Time Seen by Provider: 08/16/19 17:39 Source of Information: Reports: Patient, Family, RN, RN Notes Reviewed History Limitations: Reports: No Limitations - History of Present Illness INITIAL COMMENTS - FREE TEXT/NARRATIVE: A 54-year-old male presents to the ED after falling at home and hitting his head on a chair. Patient reports slipping on one of the animals at home. Denies any loss of consciousness, but reports a headache a 5/10 described as throbbing. He sustained a laceration above his right eyebrow. Bleeding controlled. Patient denies any other symptoms. Onset: Today Location: Reports: Other (above right eyebrow) Quality: Reports: Ache Severity: Moderate Improves with: Reports: None Worsens with: Reports: None Associated Symptoms: Reports: No Other Symptoms Head Pain Score (Numeric/FACES): 3 - Related Data Allergies Allergy/AdvReac Type Severity Reaction Status Date / Time midazolam [From Versed] Allergy Other Verified 08/16/19 17:16 Sulfa (Sulfonamide Allergy Rash Verified 08/16/19 17:16 Antibiotics) Home Meds: Home Meds ALPRAZolam [Xanax] 0.5 mg PO TID PRN 09/08/15 [History] Lisinopril 10 mg PO DAILY 09/08/15 [History] atorvaSTATin [Lipitor] 5 mg PO DAILY 09/08/15 [History] mycophenolate mofetiL [Cellcept] 1,500 mg PO BID 01/03/16 [History] DULoxetine [Cymbalta] 60 mg PO DAILY 07/05/16 [History] Folic Acid 1 mg PO DAILY 08/16/19 [History] Insuln Asp Prot/Insulin Aspart [NovoLOG Mix 70-30] 30 units SUBCUT DAILY [History] Methotrexate Sodium [Methotrexate] 2.5 mg PO ASDIRECTED 08/16/19 [History] Pantoprazole [ProTONIX] 40 mg PO DAILY 08/16/19 [History] Rosuvastatin [Crestor] 10 mg PO BEDTIME 08/16/19 [History] Past Medical History HEENT History: Reports: Impaired Vision Cardiovascular History: Reports: Arrhythmia, Automatic Implantable Cardioverter Defibrillators, CAD, Cardiomyopathy, High Cholesterol, Hypertension, Pacemaker, Prior Cardiac Arrest Other Cardiovascular History: cardiac arrest 1 month ago due to dilated cardiomyopathy, had an AICD implanted Respiratory History: Reports: None Other Respiratory History: Sarcoidosis Gastrointestinal History: Reports: Cholelithiasis, GERD Genitourinary History: Reports: None Neurological History: Reports: None Psychiatric History: Reports: Anxiety Endocrine/Metabolic History: Reports: Diabetes, Type II Other Endocrine/Metabolic History: recent hospitalization for low sodium Hematologic History: Reports: Anemia Immunologic History: Reports: None Oncologic (Cancer) History: Reports: None Dermatologic History: Reports: None - Infectious Disease History Infectious Disease History: Reports: Chicken Pox, Hepatitis A, Hepatitis B - Past Surgical History Cardiovascular Surgical History: Reports: AICD GI Surgical History: Reports: Cholecystectomy, EGD Male Surgical History: Reports: None Musculoskeletal Surgical History: Reports: Other (See Below) Other Musculoskeletal Surgeries/Procedures:: Wrist surgery Oncologic Surgical History: Reports: None Social & Family History - Family History Family Medical History: Noncontributory Cardiac: Reports: CAD GI: Reports: Pancreatitis Oncologic: Reports: Pancreatic - Tobacco Use Smoking Status *Q: Never Smoker Second Hand Smoke Exposure: No - Caffeine Use Caffeine Use: Reports: Coffee, Soda - Recreational Drug Use Recreational Drug Use: No - Living Situation & Occupation Living situation: Reports: , with Family Occupation: Employed ED ROS GENERAL - Review of Systems Review Of Systems: Comprehensive ROS is negative, except as noted in HPI. ED EXAM, GENERAL - Physical Exam Exam: See Below Exam Limited By: No Limitations General Appearance: Alert, WD/WN, No Apparent Distress Eye Exam: Bilateral Eye: EOMI, Normal Inspection, PERRL, Other (3 cm laceration above the right eyelid. ) Ears: Normal External Exam, Normal Canal, Hearing Grossly Normal, Normal TMs Nose: Normal Inspection, Normal Mucosa, No Blood Throat/Mouth: Normal Inspection, Normal Lips, Normal Teeth, Normal Gums, Normal Oropharynx, Normal Voice, No Airway Compromise Head: Atraumatic, Normocephalic Neck: Normal Inspection, Supple, Non-Tender, Full Range of Motion Respiratory/Chest: No Respiratory Distress, Lungs Clear, Normal Breath Sounds, No Accessory Muscle Use, Chest Non-Tender Cardiovascular: Systolic Murmur Neurological: Alert, Oriented, CN II-XII Intact, Normal Cognition, Normal Gait, Normal Reflexes Psychiatric: Normal Affect, Normal Mood Skin Exam: Warm Lymphatic: No Adenopathy ED GENERAL MEDICAL PROCEDURES - Laceration/Wound Repair Right Face Lac/wound length in cm: 3 Appearance: Superficial Distal NVT: Neuro & Vascular Intact Anesthetic Type: Local Local Anesthesia - Lidocaine (Xylocaine): 1% Plain Local Anesthetic Volume: 2cc Skin Prep: Chlorhexidine (Hibiciens) Exploration/Debridement/Repair: Wound Explored, No Foreign Material Found Closed with: Sutures Suture Size: 4-0 Suture Type: Other (Ethilon) Sterile Dressing Applied: Nurse Tetanus Status Addressed: Yes Complications: No Course - Vital Signs Last Recorded V/S: Last Vital Signs Temp 96.9 F 08/16/19 17:19 Pulse 89 08/16/19 17:19 Resp 18 08/16/19 17:19 BP 97/58 L 08/16/19 17:19 Pulse Ox 100 08/16/19 17:19 - Orders/Labs/Meds Meds: Medications Discontinued Medications Generic Name Dose Route Start Last Admin Trade Name Syed PRN Reason Stop Dose Admin Bacitracin 1 dose 08/16/19 17:55 08/16/19 18:24 Bacitracin Oint 1 Gm TOP 08/16/19 17:56 1 dose ONETIME ONE Administration Lidocaine HCl 30 ml 08/16/19 17:55 08/16/19 18:24 Xylocaine-Mpf 1% INJECT 08/16/19 17:56 30 ml ONETIME ONE Administration Oxycodone HCl 5 mg 08/16/19 18:20 08/16/19 18:27 Oxycodone PO 08/16/19 18:21 5 mg ONETIME ONE Administration - Re-Assessments/Exams Free Text/Narrative Re-Assessment/Exam: See PCP in 7 to 10 days for suture removal. Keep wound clean and dry. Oxycodone 5mg administered for headache. Encourage rest. Apply ice to right eyelid to prevent swelling. Symptoms to return to the ER reviewed with patient and and they verbalized understanding. Departure - Departure Time of Disposition: 18:26 Disposition: Home, Self-Care 01 Condition: Good Clinical Impression: Laceration of eyelid Qualifiers: Encounter type: initial encounter Laterality: right Qualified Code(s): S01.111A - Laceration without foreign body of right eyelid and periocular area, initial encounter Fall Qualifiers: Encounter type: initial encounter Qualified Code(s): W19.XXXA - Unspecified fall, initial encounter Headache Qualifiers: Headache type: post-traumatic Headache chronicity pattern: acute headache Intractability: intractable Qualified Code(s): G44.311 - Acute post-traumatic headache, intractable - Discharge Information Instructions: Stitches, Yoni, or Adhesive Wound Closure, [id number] Forms: ED Department Discharge Additional Instructions: Patient to follow up with PCP in 7 to 10 days for suture removal. Keep wound clean and dry. Apply ice to the right eyelid to prevent swelling. Symptoms to return to the ER reviewed with patient and . Sepsis Event Note - Evaluation Sepsis Screening Result: No Definite Risk - Focused Exam Vital Signs: Vital Signs Temp Pulse Resp BP Pulse Ox 08/16/19 17:19 96.9 F 89 18 97/58 L 100 Date Exam was Performed: 08/16/19 Time Exam was Performed: 18:29 I have read and agree with the documentation that has been completed regarding this visit. By signing this record, I attest that the documentation was completed in my physical presence and is an accurate record of the encounter.
== END 2019-08-16 18:38 | disposition home or self-care (01) ==
LOC: DL.ED 17:09
DX: S01.111A Laceration without foreign body of right eyelid and periocular area, initial encounter (principal); G44.311 Acute post-traumatic headache, intractable; E78.00 Pure hypercholesterolemia, unspecified; I10 Essential (primary) hypertension; E11.9 Type 2 diabetes mellitus without complications; K21.9 Gastro-esophageal reflux disease without esophagitis; F41.9 Anxiety disorder, unspecified; Z79.899 Other long term (current) drug therapy; Z88.8 Allergy status to other drugs, medicaments and biological substances; Z88.2 Allergy status to sulfonamides; W01.190A Fall on same level from slipping, tripping and stumbling with subsequent striking against furniture, initial encounter; Y92.009 Unspecified place in unspecified non-institutional (private) residence as the place of occurrence of the external cause
CPT/HCPCS: 12013; 99282; A9270; J2001

== ENCOUNTER 2019-09-08 21:50 | Emergency (ER) | payer BC ==
[2019-09-08 22:05] VITALS: BP 122/75; PULSE 98
== END 2019-09-08 22:06 | disposition left against medical advice (07) ==
LOC: DL.ED 21:50
DX: Z53.21 Procedure and treatment not carried out due to patient leaving prior to being seen by health care provider (principal)